=== PATIENT | female | born 1950 | race Caucasian/White ===

== ENCOUNTER 2017-03-27 17:43 | Observation (INO) | payer OTHER ==
[~2017-03-27] VITALS: Ht 160 cm; Wt 78.6 kg
[2017-03-27 19:25] LABS: HEMATOCRIT 44.8 % (36.0-46.0); MCH 29.5 PG (29.0-34.0); MCHC 33.5 G/DL (30.0-36.0); MCV 88.2 FL (83-99); PLATELET COUNT 318 K/uL (156-360); RBC DIS.WIDTH-CV 13.1 % (11.8-14.6); RBC DIS.WIDTH-SD 42.6 % (39-53); RED BLOOD COUNT 5.08 M/uL (3.80-5.20); WHITE BLOOD COUNT 9.8 K/uL (4.1-10.2)
[2017-03-27 19:39] LABS: CHLORIDE 105 mEq/L (99-109); POTASSIUM 4.2 mEq/L (3.7-5.4); SODIUM 142 mEq/L (136-147)
[2017-03-27 19:41] LABS: GLUCOSE 119 mg/dL (70-99)
[2017-03-27 19:44] LABS: CREATININE 0.8 mg/dL (0.6-1.3); GFR ESTIMATE (CALCULATED) > 59 mL/min/
[2017-03-27 19:45] LABS: UREA NITROGEN (BUN) 12 mg/dL (9-23)
[2017-03-27 19:48] LABS: TROP-I INTERPRETATION NEGATIVE; TROPONIN-I < 0.01 ng/mL (0.0-0.30)
[2017-03-27 21:31] LABS: TROP-I INTERPRETATION NEGATIVE; TROPONIN-I < 0.01 ng/mL (0.0-0.30)
[2017-03-28] MEDS ORDERED: LISINOPRIL-HCT1 EACH PO (01:17)
[2017-03-28] MEDS ORDERED: AMBIEN10 MG PO (01:17)
[2017-03-28 04:19] LABS: TROP-I INTERPRETATION NEGATIVE; TROPONIN-I < 0.01 ng/mL (0.0-0.30)
[2017-03-28 09:51] LABS: TROP-I INTERPRETATION NEGATIVE; TROPONIN-I < 0.01 ng/mL (0.0-0.30)
[2017-03-28 10:00] VITALS: BP 142/80
[2017-03-28] MEDS ORDERED: ANTIVERT25 MG PO (13:51)
[2017-03-28] MEDS ORDERED: FAMOTIDINE20 MG PO (13:52)
== END 2017-03-28 12:00 | disposition home or self-care (01) ==
LOC: EME 17:43 → EDOF 03-28 01:30 → ENRESERV 03-28 01:31 → EDOF 03-28 12:00 → CANRESERV 03-28 12:48 → ENRESERV 03-28 12:48
PROVIDERS: Emergency Medicine; Physician Assistant
DX: R07.9 Chest pain, unspecified (principal); R42 Dizziness and giddiness; I10 Essential (primary) hypertension; R94.31 Abnormal electrocardiogram [ECG] [EKG]; Z82.49 Family history of ischemic heart disease and other diseases of the circulatory system; Z90.710 Acquired absence of both cervix and uterus; Z82.5 Family history of asthma and other chronic lower respiratory diseases; Z79.82 Long term (current) use of aspirin
CPT/HCPCS: 70450; 71046; 80048; 84484; 85027; 93005; 99281; 99285; G0378; J1644